=== PATIENT | male | born 1960 | race Caucasian/White ===

== ENCOUNTER 2019-01-14 06:03 | Day surgery (SDC) | payer BC, OTHER ==
[2019-01-12 10:08] VITALS: BMI 31.1
[~2019-01-14 06:03] MED LIST: DEXAMETHASONE SOD PHOSPHATE 10 MG/ML 1 ML VIAL IV ONE; DEXAMETHASONE SOD PHOSPHATE 4 MG/ML 1 ML VIAL IV ONE; FAMOTIDINE 20 MG/2 ML VIAL IV ONE; HYDROmorphone 0.5 MG/0.5 ML SYRINGE IVP PRN; LACTATED RINGERS 1,000 ML IV SCH; LIDOCAINE 1% 20 ML VIAL (10MG/ML) FOR IV START INTRADERMA PRN; MIDAZOLAM 2 MG/2 ML VIAL IV PRN; ONDANSETRON 4 MG/2 ML VIAL IVP ONE; SCOPOLAMINE 1.5MG/72HR PATCH TRANSDERM ONE
[2019-01-14] MEDS: OXYMETAZOLINE 0.05% NASL SPRAY 1 SPRAY BOTTLE NASAL ONE ×5 (06:47→07:07)
[2019-01-14] MEDS ORDERED: GLYCOPYRROLATE 0.2 MG/ML 2 ML VIAL ONE (07:24)
[2019-01-14] MEDS ORDERED: LIDOCAINE 1% INJ 10MG/ML (20 ML MDV) ONE (07:24)
[2019-01-14] MEDS ORDERED: PHENYLEPHRINE-0.9% NACL SYG 1 MG/10 ML SYRINGE ONE (07:24)
[2019-01-14] MEDS ORDERED: ROCURONIUM BROMIDE 10 MG/ML 10 ML VIAL IV ONE (07:24)
[2019-01-14] MEDS ORDERED: ePHEDrine SULFATE/0.9% NACL/PF 50 MG/5 ML SYRINGE IV ONE (07:24)
[2019-01-14] MEDS ORDERED: NEOSTIGMINE 1 MG/ML 10 ML VIAL ONE (07:24)
[2019-01-14] MEDS ORDERED: MIDAZOLAM 2 MG/2 ML VIAL ONE (07:24)
[2019-01-14] MEDS ORDERED: PROPOFOL 10 MG/ML 20 ML VIAL IV ONE (07:24)
[2019-01-14] MEDS ORDERED: SUCCINYLCHOLINE CHLORIDE 100 MG/5 ML SYR IV ONE (07:24)
[2019-01-14] MEDS ORDERED: fentaNYL (PF) 50 MCG/ML 2 ML AMP ONE (07:24)
[2019-01-14] MEDS ORDERED: DEXAMETHASONE SOD PHOS (MDV) 100 MG/10 ML VIAL ONE (07:24)
[2019-01-14] MEDS ORDERED: FLUORESCEIN STRIPS 1 MG STRIP MISCELLANE ONE (08:03)
[2019-01-14] MEDS ORDERED: BUPIVACAIN-EPI 0.5%-1:200,000 30 ML VIAL SQ ONE (08:03)
[2019-01-14] MEDS ORDERED: EPINEPHrine 1 MG/ML (MDV) 30 ML VIAL IRRIGATION ONE (08:03)
[2019-01-14] MEDS ORDERED: LIDOCAINE 1%-EPI 1:100,000 20 ML VIAL SUBMUCOSAL ONE (08:03)
[2019-01-14] MEDS ORDERED: LACTATED RINGERS 1,000 ML IV ONE (09:03)
[2019-01-14] MEDS ORDERED: BACITRACIN 500 UNIT/GM OINT 28.4 GM TUBE TOPICAL ONE (09:04)
[2019-01-14 09:40] VITALS: RESP 16; TEMP 97
--- NOTE | 2019-01-14 10:10 | P.OP ---
Date of Procedure: 01/14/19 Preoperative Diagnosis: Chronic Sinusitis External nasal deformity Deviated nasal septum Inferior turbinate hypertrophy Nasal bone fracture Postoperative Diagnosis: Same Procedure(s) Performed: Rhinoplasty Septoplasty Bilateral functional endoscopic sinus surgery with total ethmoidectomy and maxillary antrostomies Bilateral submucosal resection of the inferior nasal turbinates with outfracture and compression Anesthesia: ELLA Surgeon: Willian Cardona Estimated Blood Loss (ml): 25 Pathology: other (Sinonasal) Condition: stable Disposition: PACU Indications for Procedure: This is a 58-year-old white male who had a nasal bone fracture at age 11 following a fall off the monkey bars with loss of consciousness etc. He's had a lifetime difficulty breathing through his nose and is a mouth breather. He has an acquired external nasal deformity since that time and CAT scan evaluation of his reach chronic sinusitis with maxillary and ethmoid disease. The patient has chronic sinus symptoms with maxillary sinus pain pressure drainage and has failed multiple antibiotic therapies over the last many years. He is motivated to proceed forward with surgery. He snores loudly is a chronic mouth breather and has total nasal obstruction and anosmia. Operative Findings: Patient had a severely to arrange septum. Nasal bone right side was pushed inward left side was out were entered with a box nose deformity with large inferior turbinates and evidence of chronic sinusitis of the maxillary and ethmoid sinuses. Description of Procedure: This patient was taken to the operative room and placed in the supine position. A general inhalation anesthetic was administered to the patient by the department of anesthesia with a functioning IV line in place. The patient was monitored throughout the entire case by the department of anesthesia. The eyes were taped shut for protection. The patient was placed in a slight reverse Trendelenburg position. The patient had previously utilize Afrin nasal spray preoperatively. The nose was evaluated and the septum lateral nasal wall and inferior turbinates were injected with lidocaine 1% with epinephrine 1 100,000 bilaterally. Approximately 10 minutes were allowed wait for full vasoconstrictive effects to take place. At this point a caudal incision was made over the caudal portion of the left septum down to the mucoperichondrium. A mucoperichondrial flap was elevated on the left side and dissection was carried with use of tunnels posteriorly. We then made a crossover incision through the cartilage to the contralateral side and for the mucoperichondrial flap development was performed to the extent of visualization on the contralateral side. After the cartilage was freed with use of several crosshatching incisions and removal of some redundant strips of septal cartilage, the septum was straightened and placed back in the midline. The septum was sutured fixated to the ovarian groove. Excellent straightening occurred and the septum was visibly straight. Incision was closed with a 40 rapid Vicryl. We utilized a running nonlocking fashion for closure of the incision. A quilting stitch was used to reapproximate the septal flaps with use of a 40 rapid Vicryl. We then entered the nose with a 0 and 30 Cleary lydia endoscope. Previous to this we did inject the lateral nasal wall and middle turbinate and uncinate process with lidocaine 1% with epinephrine 1 100,000. Approximately 10 minutes were allowed wait for full vasoconstrictive effects to take place. With use of a microdebrider and a pediatric backbiter, we took down the uncinate process bilaterally. We then opened the maxillary sinuses bilaterally. We utilized a microdebrider for this and entered the maxillary sinuses and removed diseased tissue. This was done bilaterally. After the maxillary sinuses were opened and the diseased tissue was removed we entered the ethmoid bulla and with use of a microdebrider and up-biting boss and Cecilia, we followed the fovea frontalis through the basal lamella and into the posterior ethmoid air cells and did a total ethmoidectomy. We removed the anterior ethmoid air cells with use of a microdebrider and up-biting boss. After all the anterior ethmoid air cells were removed we did the same in the posterior ethmoid. A total ethmoidectomy was completed in that fashion with removal of all the anterior and posterior ethmoid air cells and diseased tissue. Ethmoid sinuses were opened totally. Xerogel was inserted and minimal bleeding was encountered. We reinspected the skull base there is no signs of any orbital penetration or signs of any intracranial penetration. The sugical site was reinspected after the xerogel was placed and no bleeding was seen. Attention was then paid to the inferior turbinates. The bilateral inferior turbinates were hypertrophic and obstructive. We entered the anterior portion of the inferior turbinates with use of a microdebrider. We remove bone and submucosal elements with use of a microdebrider bilaterally. The inferior turbinates underwent a submucosal resection with removal of submucosal tissue and bone. We obtained a much better and normal in size for breathing. The inferior turbinates were then outfractured and compressed with a Votigo nasal elevator. Excellent airway was obtained and was symmetric bilaterally. No bleeding was encountered. Attention was then paid to the external nose which was deviated to the left. We anesthetized the outside of the nose with Marcaine lidocaine and had a previous sterile prep internally and externally performed. We performed i ntercartilaginous incisions with a 15 blade and elevated the soft tissue off the nasal dorsum. We made intercartilaginous incisions and used a Earl elevator to elevate the nasal dorsum. We then performed a medial and lateral osteotomies. We infractured and outfractured the nasal bones replace them into a straight position as a nose was severely deviated to the left. Nasal bones were recontoured placed back in the midline for better contour of the nasal dorsum. The incisions were closed with a 4 rapid Vicryl and the nose was fixated casted and splinted in the usual fashion. Excellent external contour was obtained. Intranasal splints were inserted and fixated at the end of the case. We utilized Diallo nasal splints. There will be removed and the patient returns to the office.
[2019-01-14 10:46] VITALS: BP 132/85; PULSE 94
== END 2019-01-14 11:08 | disposition home or self-care (01) ==
LOC: OR 06:03
PROVIDERS: ATTEND Otolaryngology
DX: J32.9 Chronic sinusitis, unspecified (principal); J34.2 Deviated nasal septum; J34.3 Hypertrophy of nasal turbinates; M95.0 Acquired deformity of nose; Z87.81 Personal history of (healed) traumatic fracture; I10 Essential (primary) hypertension; Z79.899 Other long term (current) drug therapy; Z82.49 Family history of ischemic heart disease and other diseases of the circulatory system
CPT/HCPCS: 30420; 31255; 31267; 30140; 88305; 88300; J0171; J2250; J1100 ×2; J2710; J2405; J2001; J3010; J2370; J0330; J2704